=== PATIENT | male | born 1975 | race African-American/Black ===

== ENCOUNTER 2020-08-15 20:02 | Emergency (ER) | payer SELFPAY ==
--- NOTE | 2020-08-15 20:18 | EDM.PDOC ---
ED HPI GENERAL MEDICAL PROBLEM - General Chief Complaint: Lower Extremity Injury/Pain Stated Complaint: RT EAR PAIN, RT KNEE PAIN Time Seen by Provider: 08/15/20 20:18 Source of Information: Reports: Patient History Limitations: Reports: No Limitations - History of Present Illness INITIAL COMMENTS - FREE TEXT/NARRATIVE: Steven is a 45-year-old male who presents today for right knee pain and right ear pain. Patient states he is at a [employer] and had to jump over beam and hit his right knee on the beam. Since that time he has had some tenderness to the knee with walking and and flexion. Patient also reported some swelling subsided with ice and Motrin. Patient denies any other injuries from the work- up course. Patient says he is having some pain to the right ear has not had any drainage or change in hearing. Patient denies any fever chills nausea vomiting. Right Ear Pain Score (Numeric/FACES): 10 Right Knee Pain Score (Numeric/FACES): 9 - Related Data Allergies Allergy/AdvReac Type Severity Reaction Status Date / Time No Known Allergies Allergy Verified 08/15/20 20:19 Home Meds: Home Meds amLODIPine/atorvaSTATin [Amlodipine-Atorvast 10-20 mg] 1 each PO QAM 11/10/14 [History] Ciprofloxacin HCl/Dexameth [Ciproflox-Dexameth Otic Susp] 7.5 ml OT BID 7 Days #1 drops.susp 08/15/20 [Rx] Valsartan/Hydrochlorothiazide [Valsartan-Hctz 160-25 mg Tab] 08/15/20 [History] Review of Systems - Review of Systems Review Of Systems: See Below Constitutional: Reports: No Symptoms Eyes: Reports: No Symptoms Ears: Reports: Purulent Discharge Nose: Reports: No Symptoms Mouth/Throat: Reports: No Symptoms Respiratory: Reports: No Symptoms Cardiovascular: Reports: No Symptoms GI/Abdominal: Reports: No Symptoms Genitourinary: Reports: No Symptoms Musculoskeletal: Reports: No Symptoms Skin: Reports: No Symptoms Neurological: Reports: No Symptoms Psychiatric: Reports: No Symptoms ED EXAM, GENERAL - Physical Exam Exam: See Below Exam Limited By: No Limitations General Appearance: Alert, WD/WN Eye Exam: Bilateral Eye: EOMI, PERRL Ears: Normal External Exam Ear Exam: Right Ear: Foreign Body (cotton), Tenderness, TM Bulging Neck: Normal Inspection Respiratory/Chest: No Respiratory Distress, Lungs Clear Cardiovascular: Normal Peripheral Pulses, Regular Rate, Rhythm GI/Abdominal: Normal Bowel Sounds, Soft, Non-Tender Extremities: Normal Inspection, Normal Range of Motion. No: Joint Swelling, Limited Range of Motion Neurological: Alert, Oriented Course - Vital Signs Last Recorded V/S: Last Vital Signs Temp 96.5 F L 08/15/20 20:16 Pulse 99 08/15/20 20:16 Resp 19 08/15/20 20:16 BP 175/106 H 08/15/20 20:16 Pulse Ox 98 08/15/20 20:16 - Orders/Labs/Meds Orders: Active Orders 24 hr Category Date Time Status Ciprofloxacin/Dexamethasone [Ciprodex Otic Susp] Med 08/15/20 21:30 Active 1 ml EARRT BID DME for Discharge [COMM] Stat Oth 08/15/20 21:18 Ordered Medication Orders Ciprofloxacin/Dexamethasone (Ciprodex Otic Susp) 1 ml EARRT BID ANDRIA Meds: Medications Generic Name Dose Route Start Last Admin Trade Name Clifford PRN Reason Stop Dose Admin Ciprofloxacin/Dexamethasone 1 ml 08/15/20 21:30 Ciprodex Otic Susp EARRT BID ANDRIA - Re-Assessments/Exams Free Text/Narrative Re-Assessment/Exam: 08/15/20 21:18 Cottonball foreign bodies removed the ear and it was flushed with some more cotton ball pieces and placed in a spell of near. Patient feels a lot better. Patient x-ray shows a joint effusion. Will Pascual wrap and have patient ice and keep elevated. What you are ordering pascual wrap Why you are ordering it knee swelling with effusion How it will benefit patient assist with ambulating How long is patient to use it 7-10 days Departure - Departure Time of Disposition: 21:20 Disposition: Home, Self-Care 01 Condition: Good Clinical Impression: Foreign body of ear, right, Knee effusion, right - Discharge Information *PRESCRIPTION DRUG MONITORING PROGRAM REVIEWED*: Not Applicable *COPY OF PRESCRIPTION DRUG MONITORING REPORT IN PATIENT RAKAN: Not Applicable Prescriptions: Ciprofloxacin HCl/Dexameth [Ciproflox-Dexameth Otic Susp] 7.5 ml OT BID 7 Days #1 drops.susp Instructions: Knee Effusion, Ear Foreign Body Referrals: Jean-Pierre Reynolds MD [Primary Care Provider] - Forms: ED Department Discharge Additional Instructions: The following information is given to patients seen in the emergency department who are being discharged to home. This information is to outline your options for follow-up care. We provide all patients seen in our emergency department with a follow-up referral. The need for follow-up, as well as the timing and circumstances, are variable depending upon the specifics of your emergency department visit. If you don't have a primary care physician on staff, we will provide you with a referral. We always advise you to contact your personal physician following an emergency department visit to inform them of the circumstance of the visit and for follow-up with them and/or the need for any referrals to a consulting specialist. The emergency department will also refer you to a specialist when appropriate. This referral assures that you have the opportunity for follow-up care with a specialist. All of these measure are taken in an effort to provide you with optimal care, which includes your follow-up. Under all circumstances we always encourage you to contact your private physician who remains a resource for coordinating your care. When calling for follow-up care, please make the office aware that this follow-up is from your recent emergency room visit. If for any reason you are refused follow-up, please contact the [facility] Emergency Department at and asked to speak to the emergency department charge nurse. Please follow up with your primary care physician. If you do not have a primary care physician, see below: [facility] [address], [address] [place] [address] Please follow-up with the orthopedic doctor for your knee pain. If you continue to have any symptoms please return to the ED. We also gave eardrops for your ear infection. Please refrain from using any Q-tips or inserting anything in your ear. Have any other concerning signs or symptoms please return to the ED. Sepsis Event Note (ED) - Focused Exam Vital Signs: Vital Signs Temp Pulse Resp BP Pulse Ox 08/15/20 20:16 96.5 F L 99 19 175/106 H 98 - My Orders Last 24 Hours: My Active Orders 08/15/20 21:18 DME for Discharge [COMM] Stat 08/15/20 21:30 Ciprofloxacin/Dexamethasone [Ciprodex Otic Susp] 1 ml EARRT BID - Assessment/Plan Last 24 Hours: My Active Orders 08/15/20 21:18 DME for Discharge [COMM] Stat 08/15/20 21:30 Ciprofloxacin/Dexamethasone [Ciprodex Otic Susp] 1 ml EARRT BID Assessment:: Is a 45-year-old male presents today for right knee pain right ear pain. Patie nt has some tenderness to touch of the right knee will obtain an x-ray and reassess. Patient had looks like a cottonball in the right ear that was removed. Patient will be started on antibiotics orally for this.
--- NOTE | 2020-08-15 21:16 | CR ---
HISTORY: Right knee pain. TECHNIQUE: Three views of the right knee. COMPARISON: No prior. FINDINGS: No acute fracture or malalignment. Mild osteophyte formation involving the patellofemoral compartment compatible with degenerative arthrosis. There is likely a suprapatellar joint effusion. IMPRESSION: 1. Suspected suprapatellar joint effusion. 2. No acute fracture. 3. Mild degenerative changes. Dictated by Dwayne Gibson MD @ 08/15/2020 9:15:38 PM Dictated by: Dwayne Gibson MD @ 08/15/2020 21:15:43 (Electronically Signed)
[2020-08-15] MEDS ORDERED: Ciprofloxacin/Dexamethasone 0.3-0.1% Otic Susp 7.5 ML Bottle EARRT SCH (21:30)
[2020-08-15] MEDS ORDERED: Ibuprofen 800 MG Tab PO ONE (21:34)
[2020-08-15 22:10] VITALS: BP 148/99; PULSE 95
== END 2020-08-15 21:45 | disposition home or self-care (01) ==
LOC: MW.ED 20:02
DX: T16.1XXA Foreign body in right ear, initial encounter (principal); M25.461 Effusion, right knee; Z79.899 Other long term (current) drug therapy
CPT/HCPCS: 73562; 99283; A9270